=== PATIENT | female | born 1955 | race Caucasian/White ===

== ENCOUNTER 2017-02-19 11:44 | Emergency (ER) | payer BC ==
[~2017-02-19] VITALS: Ht 162.6 cm; Wt 83.6 kg
[~2017-02-19 11:44] MED LIST: LEVOTHYROXINE0.05 MG PO; METOPROLOL SUCC25 M1 PO; SIMVASTATIN40 M1 PO
[2017-02-19] MEDS ORDERED: CIPRO 500MG TA500 MG PO (13:27)
== END 2017-02-19 13:44 | disposition home or self-care (01) ==
LOC: ED 11:44
DX: T78.40XA Allergy, unspecified, initial encounter (principal); N39.0 Urinary tract infection, site not specified
CPT/HCPCS: J1200; J7030